=== PATIENT | male | born 1970 | race Caucasian/White ===

== ENCOUNTER 2018-04-20 20:19 | Observation (INO) ==
[2018-04-20 20:56] LABS: Basophils % 0.5 %; Eosinophils # 0.2 K/mcL (0.0-0.6); Eosinophils % 3.2 %; Hematocrit 45.8 % (37.5-50.1); Hemoglobin 15.4 g/dL (12.9-16.9); Immature Granulocytes % 0.3 % (0-4); Lymphocytes # 1.9 K/mcL (0.6-4.6); Mean Corpuscular HGB Conc 33.6 g/dL (31.6-35.5); Mean Corpuscular Hemoglobin 30.5 pg (28.0-33.3); Mean Corpuscular Volume 90.7 fL (83.0-100.0); Mean Platelet Volume 10.3 fL (9.4-12.4); Monocytes # 0.7 K/mcL (0.0-1.3); Monocytes % 11.4 %; Neutrophils # 3.1 K/mcL (1.6-8.9); Platelet Count 146 K/mcL (140-400); Red Blood Count 5.05 M/mcL (4.19-5.50); Red Cell Distribution Width 13.8 % (11.5-14.5); Segmented Neutrophils % 52.6 %
[2018-04-20 21:06] LABS: Prothrombin Time 11.3 Seconds (9.4-12.1)
[2018-04-20 21:08] LABS: Activated Partial Thrombo Time 32.4 Seconds (26.0-36.0)
[2018-04-20 21:17] LABS: BUN/Creatinine Ratio 13 (6-26); Blood Urea Nitrogen 13 mg/dL (6-20); Calcium 8.9 mg/dL (8.6-10.3); Carbon Dioxide 24 mEq/L (23-29); Chloride 106 mEq/L (98-107); Glucose 110 mg/dL (70-105); Osmolality,Calculated 285 (280-300); Potassium 4.1 mEq/L (3.5-5.1); Sodium 137 mEq/L (136-145); eGFR For Non-African Americans > 60 (> 60)
[2018-04-20 21:18] LABS: Troponin I < 0.03 ng/mL (< 0.04)
--- NOTE | 2018-04-20 22:20 | Emergency Department Note ---
Disposition Clinical Impression: Chest pain Qualifiers: Chest pain type: unspecified Qualified Code(s): R07.9 - Chest pain, unspecified Disposition: Admitted As Inpatient Condition: Good Referrals: NONE,PCP [Primary Care Provider] - Forms: ED Satisfaction Letter Time of Disposition: 22:30 General Adult HPI - General Chief complaint: ED Chest Pain Stated complaint: cp Time Seen by Provider: 04/20/18 20:26 Source: patient Mode of arrival: ambulatory Limitations: no limitations Nursing Notes Reviewed: Yes Vital Signs Reviewed: Yes - History of Present Illness HPI Narrative: 48-year-old male with significant past medical history of hypertension presenting to the emergency Department chief complaint of chest pain. Patient was recently admitted for chest pain previously. He states he had a stress test but no further intervention. Patient states when he was discharge she was still having minimal chest pain rated as a 1-2 out of 10. Patient states today his chest pain started to become worse. It was substernal and radiated down his left arm. He denies diaphoresis or nausea. Patient did not try anything at home for this. Pain Scale: 0 - Related Data Home Medications Medication Instructions Recorded Confirmed HYDROcodone/Acet 10/325 mg [[place] 1 tab PO Q6HR PRN 04/20/18 04/20/18 10-325 mg] Allergies Allergy/AdvReac Type Severity Reaction Status Date / Time prednisone AdvReac Hives Verified 04/20/18 20:23 All systems ED: reviewed and negative except as stated. Constitutional: Denies: fever, chills Eyes: Reports: as per HPI ENT ED: Reports: as per HPI Cardiovascular: Reports: chest pain. Denies: palpitations, dyspnea on exertion Respiratory: Denies: cough, dyspnea, wheezes Gastrointestinal: Denies: abdominal pain, nausea, vomiting Genitourinary: Reports: as per HPI Musculoskeletal: Reports: as per HPI Integumentary: Reports: as per HPI Neurological: Denies: numbness, paresthesias Psychiatric: Reports: as per HPI Endocrine: Reports: as per HPI Hematological/Lymphatic: Reports: as per HPI Allergic/Immunologic: Reports: as per HPI Past Medical History - Past Medical History Attestation: Yes The following information was validated with the patient. Medical history: Reports: no medical history, other Surgical history: Reports: orthopedic, other (L-spine fusion, 2 rods placed) Psychiatric history: Reports: no psych history - Social History Smoking Status: Current every day smoker Alcohol use: Reports: none Drug use: Reports: none Physical Exam - General Limitations: no limitations General appearance: alert, in no apparent distress - Head Head exam: atraumatic, normocephalic, normal inspection - Eye Eye exam: Present: normal appearance. Absent: scleral icterus, conjunctival injection - ENT ENT exam: normal exam, mucous membranes moist - Neck Neck exam: Present: normal inspection, full ROM. Absent: tenderness, meningismus - Chest Chest inspection: Present: normal inspection, symmetric chest wall rise. Absent : tenderness, rash - Respiratory Respiratory exam: Present: normal lung sounds bilaterally. Absent: respiratory distress, wheezes - Cardiovascular Cardiovascular exam: Present: regular rate, normal rhythm, normal heart sounds - Abdominal Exam Abdominal exam: Present: soft, Non-Tender. Absent: distention, guarding, rebound - Extremities Exam Extremities exam: Present: normal inspection, full ROM - Neurological Exam Neurological exam: Present: alert, oriented X3 - Psychiatric Psychiatric exam: Present: normal affect, normal mood - Skin Skin exam: Present: warm, intact Course Course Narrative: 40-year-old male presenting for chest pain. Patient recently had a stress test but no catheterization. Patient states chest pain never fully went away after discharge. We will perform basic chest pain workup including troponin, EKG and chest x-ray. With the patient's symptoms most likely disposition will be admission but pending results. Patient is alert and oriented times in the room stable vital signs. He agrees with this plan. - Reevaluation(s) Reevaluation #1: Patient's laboratory analysis unchanged from previous. Chest x-ray shows possible retrocardiac pneumonia but patient has no white blood cell count and no fever. No concern for pneumonia at this time. We will plan to admit the patient for further chest pain evaluation. I spoke with the hospitalist on- call Dr. Art who agrees to accept the patient at this time. Patient is alert and oriented 3 and room stable vital signs. He agrees with this plan. Vital Signs Temperature 97.9 F 04/20/18 20:20 Pulse Rate 80 04/20/18 20:20 Respiratory Rate 16 04/20/18 20:20 Blood Pressure 156/98 04/20/18 20:20 O2 Sat by Pulse Oximetry 97 04/20/18 20:20 Temperature 97.9 F 04/20/18 20:20 Pulse Rate 56 04/20/18 22:13 Respiratory Rate 16 04/20/18 22:13 Blood Pressure 144/101 04/20/18 22:13 O2 Sat by Pulse Oximetry 96 04/20/18 22:13 Oxygen Delivery Oxygen Delivery Room Air Medical Decision Making - Lab Data Result diagrams: 04/20/18 20:35 04/20/18 20:35 Lab Results 04/20/18 04/20/18 04/20/18 Range/Units 20:35 20:35 20:35 WBC 5.9 (4.3-11.1) K/mcL RBC 5.05 (4.19-5.50) M/mcL Hgb 15.4 (12.9-16.9) g/dL Hct 45.8 (37.5-50.1) % MCV 90.7 (83.0-100.0) fL MCH 30.5 (28.0-33.3) pg MCHC 33.6 (31.6-35.5) g/dL RDW 13.8 (11.5-14.5) % Plt Count 146 (140-400) K/mcL MPV 10.3 (9.4-12.4) fL Immature Gran % 0.3 (0-4) % Seg Neutrophils % 52.6 % Lymphocytes % 32.0 % Monocytes % 11.4 % Eosinophils % 3.2 % Basophils % 0.5 % Neutrophils # 3.1 (1.6-8.9) K/mcL Lymphocytes # 1.9 (0.6-4.6) K/mcL Monocytes # 0.7 (0.0-1.3) K/mcL Eosinophils # 0.2 (0.0-0.6) K/mcL Basophils # 0.0 (0.0-0.2) K/mcL PT 11.3 (9.4-12.1) Seconds INR 1.0 APTT 32.4 (26.0-36.0) Seconds Sodium (136-145) mEq/L Potassium (3.5-5.1) mEq/L Chloride (98-107) mEq/L Carbon Dioxide (23-29) mEq/L BUN (6-20) mg/dL Creatinine (0.70-1.30) mg/dL Est GFR ( Amer) (> 60) Est GFR (Non-Af Amer) (> 60) BUN/Creatinine Ratio (6-26) Glucose (70-105) mg/dL Calculated Osmolality (280-300) Calcium (8.6-10.3) mg/dL Troponin I (< 0.04) ng/mL B-Natriuretic Peptide 11 (Less than 100) pg/mL 04/20/18 Range/Units 20:35 WBC (4.3-11.1) K/mcL RBC (4.19-5.50) M/mcL Hgb (12.9-16.9) g/dL Hct (37.5-50.1) % MCV (83.0-100.0) fL MCH (28.0-33.3) pg MCHC (31.6-35.5) g/dL RDW (11.5-14.5) % Plt Count (140-400) K/mcL MPV (9.4-12.4) fL Immature Gran % (0-4) % Seg Neutrophils % % Lymphocytes % % Monocytes % % Eosinophils % % Basophils % % Neutrophils # (1.6-8.9) K/mcL Lymphocytes # (0.6-4.6) K/mcL Monocytes # (0.0-1.3) K/mcL Eosinophils # (0.0-0.6) K/mcL Basophils # (0.0-0.2) K/mcL PT (9.4-12.1) Seconds INR APTT (26.0-36.0) Seconds Sodium 137 (136-145) mEq/L Potassium 4.1 (3.5-5.1) mEq/L Chloride 106 (98-107) mEq/L Carbon Dioxide 24 (23-29) mEq/L BUN 13 (6-20) mg/dL Creatinine 1.04 (0.70-1.30) mg/dL Est GFR ( Amer) > 60 (> 60) Est GFR (Non-Af Amer) > 60 (> 60) BUN/Creatinine Ratio 13 (6-26) Glucose 110 H (70-105) mg/dL Calculated Osmolality 285 (280-300) Calcium 8.9 (8.6-10.3) mg/dL Troponin I < 0.03 (< 0.04) ng/mL B-Natriuretic Peptide (Less than 100) pg/mL - EKG Data EKG #1 EKG attestation: Yes I reviewed and interpreted this EKG. EKG results narrative: Sinus rhythm. 67 beats for minute. MO interval 132, QRS 94, QTC 385. No signs of acute ST segment elevation or ischemia. Attestation Statement - Attestation Attestation: Dr Lake Note: Pt seen in conjunction w/ resident Dr Latonia Sawyer; please see her charting for complete documentation; I agree w/ pt's treatment and disposition and plan ; I spent face to face time w/ the pt and have reviewed the blood work and x ray results; no cough/fever or shortness of breath; not clinically pneumonia; pt has been having left parasternal chest pain which @ times radiates to L shoulder w/o clear exacerbating/alleviating factors; pain is NOT exertional; no fever or n/v/d; no pain at the time of my eval;
--- NOTE | 2018-04-20 23:25 | Internal Med History&Physical ---
<Cleve Castle - Last Filed: 04/21/18 00:33> Date of Encounter: 04/21/18 Time of Encounter: 23:23 Internal Medicine - H&P: HPI Chief complaint: Chest pain Admitted From: Emergency Dept Plans for Post Hospital Care: Home History of present illness: Mr. Lopez is a 48 year old male with past medical history of hypertension presents to emergency department with complaint of chest pain. He was notably discharged on 04/14 for the same complaint but states that his pain never resolved following this. He did undergo a stress test at that time which was equivocal as he was not able to obtain goal heart rate. Pharmacological stress test at the same time was negative for acute ischemia or infarct. Patient describes chest pain as left substernal region which is sharp and deep in nature without radiation. He does admit to occasional numbness and tingling of the left arm but states they are not always associated with the chest pain. He states his pain is nonexertional and occurs approximately once per day for the last 2 months. No exacerbating or relieving factors. Pain typically lasts for about 15 minutes before resolving on its own. Denies any social symptoms of fevers, chills, shortness of breath, nausea, vomiting. He does admit to a chronic cough which is at his baseline. In the emergency department, vital signs significant for a mildly elevated blood pressure 144/101, heart rate of 56. Laboratory results are unremarkable including a negative troponin or white count elevation. Chest x-ray did show a possible retrocardiac pneumonia. Past medical history includes hypertension however patient does admit that he does not follow with primary care physician regularly Past surgical history significant for lumbar surgeries Social history includes current every day smoker, 1 pack per day since age 16. Denies alcohol use. Admits to remote history of cocaine use briefly. Denies family history Past Med Surg Social Fam HX - Past Medical History Medical history: no medical history, other Psychiatric history: no psych history - Past Surgical History Surgical History: orthopedic, other (L-spine fusion, 2 rods placed) - Social History Smoking Status: Current every day smoker Alcohol use: none Drug use: none - Family History Mother Hx Family Cardiac Disorders: Yes (CHF) Father Hx Family Cardiac Disorders: Yes (CHF) Internal Medicine - H&P: Meds HYDROcodone/Acet 10/325 mg [[place] 10-325 mg] 1 tab PO Q6HR PRN 04/20/18 [History ] 3 Allergy/AdvReac Type Severity Reaction Status Date / Time prednisone AdvReac Hives Verified 04/20/18 20:23 All Systems PM: A 10-system review of systems was performed and is negative for pertinent findings except as documented above in the HPI. - Constitutional Constitutional: no anorexia, no chills, no fever(s) - Cardiovascular Cardiovascular ROS IM: chest pain, no diaphoresis, no dyspnea, no dyspnea on exertion, no edema, no lightheadedness, no orthopnea, no palpitations, no syncope - Respiratory Respiratory: cough, no dyspnea, no hemoptysis, no dyspnea on exertion, no wheezing, no pain with cough - Gastrointestinal Gastrointestinal: no abdominal pain, no nausea, no vomiting - Integumentary Integumentary IM: no rash - Constitutional Vitals: Temp Pulse Resp BP Pulse Ox 97.9 F 56 18 133/98 96 04/20/18 20:20 04/20/18 22:13 04/20/18 23:13 04/20/18 23:13 04/20/18 22:13 Exam: Gen.: Vitals noted. No acute distress. AAOx3. Resting comfortably in bed HEENT: PERRL/EOMI, oropharynx clear, Normocephalic, atraumatic, MMM Cardiac: RRR, no murmur, +S1/S2. Chest pain is somewhat reproducible on exam however patient states that it is usually worse Pulmonary: Crackles in bilateral lung bases, diffuse wheezing, equal chest expansion Abdomen: soft, mildly tender to palpation epigastric and left upper quadrant, BS noted, no guarding Extremities: no BLE edema, nontender calf, no cyanosis or clubbing Neuro: A&Ox3, moves all extremities, no focal deficits Psych: Appropriate mood and behavior Internal Med - H&P Results - Labs CBC & Chem 7: 04/20/18 20:35 04/20/18 20:35 - Assessment and plan (1) Chest pain Current Visit: Yes Status: Suspected Assessment and plan: - Atypical chest pain 2 months - Recent cardiac workup on including exercise stress test at which maximum heart rate was not able to be reached. Pharmacologic stress test at same time showed no evidence of ischemia or infarct - Cardiology was consult at that time and did not feel the need for left heart catheterization - No exertional components, mildly reproducible on exam - Troponin negative, no evidence of EKG changes - Chest x-ray shows possible retrocardiac consolidation suggestive of pneumonia Plan - Suspect component of costochondritis will give Toradol - Low suspicion for ACS at this time - We will continue to trend troponins x 3 - Treatment of possible underlying pneumonia as below - Will not consult cardiology at this time as there is lower suspicion for ACS. Consider consultation if symptoms persist versus follow-up as outpatient for possible left heart catheterization Qualifiers: Chest pain type: intercostal pain Qualified Code(s): R07.82 - Intercostal pain (2) Tobacco dependence Current Visit: Yes Status: Chronic Assessment and plan: Current everyday smoker, 1 pack per day - Patient was encouraged to quit and he states that he is not interested at this time (3) Essential hypertension Current Visit: Yes Status: Chronic Assessment and plan: - Mildly elevated at 139/87 - No reported home medications, possibly elevated in the setting of pain - We will monitor for now (4) DVT prophylaxis Current Visit: Yes Status: Acute Assessment and plan: - Heparin 5000 units every 12 hours (5) Pneumonia Current Visit: Yes Status: Acute Assessment and plan: - Possibly pneumonia as demonstrated on chest x-ray emergency department - Patient denies any symptoms of fevers, change in cough - Lower suspicion however this may be contributing to patient's left substernal atypical chest pain - Cough present at baseline - WBC of 5.9, afebrile - Recent hospital admission 2 weeks ago Plan - Will start on levaquin daily and continue to monitor - lower suspicion for hospital acquired pathogens, will not add MRSA or double pseudomonal coverage at this time. Consider if no improvement/ worsening. Qualifiers: Pneumonia type: due to unspecified organism Laterality: left Lung location: lower lobe of lung Qualified Code(s): J18.1 - Lobar pneumonia, unspecified organism - Time Spent With Patient Total time spent is greater than 50% in coordination of care (as documented) at patient's floor/unit and/or counseling patient: <Santana Hinojosa - Last Filed: 04/21/18 05:57> Date of Encounter: 04/20/18 Internal Medicine - H&P: HPI History of present illness: Mr. Lopez is a 48 year old male All Systems PM: A 10-system review of systems was performed and is negative for pertinent findings except as documented above in the HPI. - Constitutional Vitals: Temp Pulse Resp BP Pulse Ox 98.3 F 56 16 115/74 95 04/21/18 03:28 04/21/18 03:28 04/21/18 03:28 04/21/18 03:28 04/21/18 03:28 Internal Med - H&P Results - Labs CBC & Chem 7: 04/21/18 01:42 04/21/18 01:42 Labs: Short CBC 04/21/18 Range/Units 01:42 WBC 4.9 (4.3-11.1) K/mcL Hgb 14.1 (12.9-16.9) g/dL Hct 43.0 (37.5-50.1) % Plt Count 138 L (140-400) K/mcL Neutrophils # 2.6 (1.6-8.9) K/mcL BMP 04/21/18 01:42 Sodium 137 Potassium 4.6 Chloride 105 Carbon Dioxide 27 BUN 11 Creatinine 1.05 Glucose 113 H Calcium 9.0 Cardiac Enzymes 04/21/18 Range/Units 01:42 Troponin I < 0.03 (< 0.04) ng/mL - Attending Attestation I have seen the patient and performed my own history and physical examination. I have discussed the case with the admitting resident physician, and I agree with his assessment and plan as documented in his H&P. Briefly, patient admitted for atypical chest pain. Initial cardiac enzymes WNL and EKG unchanged from previous without signs of ischemia. CXR with possible pneumonia. Will admit for observation with telemetry. Trend troponin x 3. Start levaquin for possible pneumonia. Treat possible costochondritis with NSAID. Obtain ECHO in AM. Consider cardiology consult if symptoms persist or cardiac enzymes trend up. Repeat labwork in AM. - Assessment and plan (1) Chest pain Current Visit: Yes Status: Suspected Qualifiers: Chest pain type: intercostal pain Qualified Code(s): R07.82 - Intercostal pain (2) Tobacco dependence Current Visit: Yes Status: Chronic (3) DVT prophylaxis Current Visit: Yes Status: Acute (4) Essential hypertension Current Visit: Yes Status: Chronic (5) Pneumonia Current Visit: Yes Status: Acute Qualifiers: Pneumonia type: due to unspecified organism Laterality: left Lung location: lower lobe of lung Qualified Code(s): J18.1 - Lobar pneumonia, unspecified organism - Time Spent With Patient Total time spent is greater than 50% in coordination of care (as documented) at patient's floor/unit and/or counseling patient:
[2018-04-21] MEDS ORDERED: *HR* OxyCODONE Immed Rel 5 MG TABLET PO PRN (00:41)
[2018-04-21] MEDS ORDERED: Acetaminophen 325 MG TABLET PO PRN (00:41)
[2018-04-21] MEDS ORDERED: Naloxone 0.4 MG/ML INJ IVP PRN (00:41)
[2018-04-21] MEDS ORDERED: *HR* HYDROcodone/Acet 5/325 mg TABLET PO PRN (00:41)
[2018-04-21 01:54] LABS: Basophils % 0.6 %; Eosinophils # 0.1 K/mcL (0.0-0.6); Eosinophils % 2.8 %; Hemoglobin 14.1 g/dL (12.9-16.9); Immature Granulocytes % 0.2 % (0-4); Lymphocytes # 1.7 K/mcL (0.6-4.6); Lymphocytes % 33.7 %; Mean Corpuscular HGB Conc 32.8 g/dL (31.6-35.5); Mean Corpuscular Hemoglobin 29.6 pg (28.0-33.3); Mean Corpuscular Volume 90.1 fL (83.0-100.0); Mean Platelet Volume 9.7 fL (9.4-12.4); Monocytes # 0.5 K/mcL (0.0-1.3); Neutrophils # 2.6 K/mcL (1.6-8.9); Platelet Count 138 K/mcL (140-400); Red Blood Count 4.77 M/mcL (4.19-5.50); Red Cell Distribution Width 13.9 % (11.5-14.5); Segmented Neutrophils % 51.7 %
[2018-04-21 02:14] LABS: BUN/Creatinine Ratio 10 (6-26); Blood Urea Nitrogen 11 mg/dL (6-20); Carbon Dioxide 27 mEq/L (23-29); Chloride 105 mEq/L (98-107); Glucose 113 mg/dL (70-105); Osmolality,Calculated 284 (280-300); Potassium 4.6 mEq/L (3.5-5.1); Sodium 137 mEq/L (136-145); eGFR For Non-African Americans > 60 (> 60)
[2018-04-21] MEDS ORDERED: *HR* Heparin 5,000 UNIT/ML VIAL SQ SCH (06:00)
[2018-04-21] MEDS ORDERED: levoFLOXacin 750 MG TABLET PO SCH (09:00)
[2018-04-21 11:04] VITALS: BP 124/84
--- NOTE | 2018-04-21 12:22 | Discharge Summary ---
- NOTES TO OUTPATIENT PROVIDER Notes to Outpatient Provider: Follow-up with primary care physician. Patient hadleft pneumonia, discharged home with home with 4 days of Levaquin by mouth. Patient is not hypoxic. Date of Encounter: 04/21/18 Time of Encounter: 12:21 - Discharge Diagnosis (1) Chest pain Priority: Primary Status: Resolved Qualifiers: Chest pain type: chest pain on breathing Qualified Code(s): R07.1 - Chest pain on breathing; R07.81 - Pleurodynia (2) Tobacco dependence Priority: Secondary Status: Chronic (3) DVT prophylaxis Priority: Primary Status: Acute (4) Essential hypertension Priority: Secondary Status: Chronic (5) Pneumonia Priority: Primary Status: Acute Qualifiers: Pneumonia type: due to unspecified organism Laterality: left Lung location: lower lobe of lung Qualified Code(s): J18.1 - Lobar pneumonia, unspecified organism Hospital course: Mr. Lopez is a 48 year old male with medical history of hypertension not on any home medications who presented with pleuritic chest pain. The patient had been discharged 04/14 for chest pain during which a stress test was said to be negative for acute ischemia or infarct. This time, chest pain said to be substernal and worse with breathing. In the emergency department, vital signs significant for a mildly elevated blood pressure 144/101, heart rate of 56. Laboratory results are unremarkable including a negative troponin or white count elevation. Chest x-ray did show a possible retrocardiac pneumonia. Patient continues to smoke and has a remote history of cocaine use. Denies any current use. Patient was placed on observation to cycle his troponins. 3 sets of troponin negative. Other cardic work up not repeated He was given intravenous Levaquin in the hospital. Discharged on by mouth Levaquin. Patient's blood pressure although elevated on arrival resolved without medications. Recommend follow-up with primary care physician. 3 minutes spent on tobacco cessation counseling. Discharge discussed with: patient, nurse Time spent discussing smoking cessation with patient: 3 to 10 minutes - Time Spent with Patient Total time spent providing and/or coordinating discharge services: Less than 30 minutes - Discharge Medications Prescriptions: Levofloxacin [Levaquin] 750 mg PO DAILY #4 tablet Home Medications: HYDROcodone/Acet 10/325 mg [[place] 10-325 mg] 1 tab PO Q6HR PRN 04/20/18 [History ] Levofloxacin [Levaquin] 750 mg PO DAILY #4 tablet 04/21/18 [Rx] Allergies/Adverse Reactions: 3 Allergy/AdvReac Type Severity Reaction Status Date / Time prednisone AdvReac Hives Verified 04/20/18 20:23 Date of admission: 04/20/18 22:58 Primary care physician: PCP NONE Discharging clinician: Pito Beckett Anticipated date of discharge: 04/21/18 - Constitutional Vitals: Temp Pulse Resp BP Pulse Ox 97.4 F L 56 18 124/84 96 04/21/18 11:00 04/21/18 11:00 04/21/18 11:00 04/21/18 11:00 04/21/18 11:00 General appearance: Present: A&O X 3, pleasant, no acute distress - Head Head exam: Present: atraumatic, normocephalic - Eye Eye exam: Present: PERRL, conjuntiva pink, sclera anicteric Pupils: Present: PERRL - Neck Neck exam general surgery: Present: supple, trachea midline. Absent: lymphadenopathy - Respiratory Respiratory exam: Present: CTAB. Absent: accessory muscle use, rales, rhonchi, wheezes - Cardiovascular Cardiovascular exam: Present: RRR, +S1, +S2. Absent: diastolic murmur, gallop, rubs, systolic murmur - GI/Abdominal GI/Abdominal exam: Present: normal bowel sounds, soft, no peritoneal signs. Absent: distended, tenderness - Extremities Exam Extremities exam: Present: warm, radial pulses palpable and symmetrical. Absent : calf tenderness, cyanotic, pedal edema - Neurological Exam Neurological exam: Present: CN II-XII intact, oriented X3, no focal deficits. Absent: pronater drift, facial droop, speech deficit - Skin Skin exam: Present: dry, intact - Patient Status Disposition: Home, Self-Care Condition: Good Functional capacity at discharge: independent ambulation Overall status at discharge: patient is back to baseline - Discharge Instructions Instructions: Chest Pain (DC), Pneumonia (DC) Follow Up With: Maura Low CNP [Partnered Physician] - 04/27/18 1:00 pm (Please follow up as schedule...) NONE,PCP [Primary Care Provider] - Forms: Inpatient Work/School Release - Diet and Activity Activity: resume usual activities as tolerated Diet: regular diet
--- NOTE | 2018-04-21 16:56 | Electrocardiograph Report ---
[address] [address] Test Date: 2018-04-20 Pat Name: Renzo Lopez Department: 103 Room: 2A33 Gender: M [employer]: SANDRA : 1970 Requested By: Devonte Lake Order Number: [id number] Reading MD: Loretta Negrete Measurements Intervals [place] Rate: 67 P: 71 HI: 132 QRS: 56 QRSD: 94 T: 40 QT: 369 QTc: 385 Interpretive Statements SINUS RHYTHM POSSIBLE RIGHT VENTRICULAR CONDUCTION DELAY [RSR (QR) IN V1/V2] Electronically Signed On 04-21-2018 16:54:42 EDT by Loretta Negrete
== END 2018-04-21 13:10 | disposition home or self-care (01) ==
LOC: 2ANU 20:19 → EMEROO 20:19 → SUATTDRO 22:58 → 2ANU 23:37
PROVIDERS: ADMIT Family Medicine; ATTEND Internal Medicine

== ENCOUNTER 2019-07-02 23:00 | Observation (INO) ==
[2019-07-03] MEDS ORDERED: Nitroglycerin 0.4 MG TAB.SUBL SL PRN (04:35)
[2019-07-03] MEDS ORDERED: *HR* HYDROcodone/Acet 10/325 mg TABLET PO PRN (04:35)
[2019-07-03] MEDS ORDERED: Naloxone 0.4 MG/ML INJ IVP PRN (05:05)
[2019-07-03] MEDS ORDERED: Acetaminophen 325 MG TABLET PO PRN (05:05)
[2019-07-03] MEDS ORDERED: *HR* Promethazine 25 MG/ML VIAL IVP PRN (05:05)
[2019-07-03 05:43] LABS: Hematocrit 42.9 % (37.5-50.1); Mean Corpuscular HGB Conc 32.6 g/dL (31.6-35.5); Mean Corpuscular Hemoglobin 30.2 pg (28.0-33.3); Mean Corpuscular Volume 92.7 fL (83.0-100.0); Mean Platelet Volume 9.9 fL (9.4-12.4); Platelet Count 170 K/mcL (140-400); Red Blood Count 4.63 M/mcL (4.19-5.50); White Blood Count 7.7 K/mcL (4.3-11.1)
[2019-07-03 06:02] LABS: Chol/HDL Ratio 3.3 (0-4.9)
[2019-07-03 06:04] LABS: Alanine Aminotransferase 15 Units/L (7-52); Albumin/Globulin Ratio 1.5 (1.1-2.2); Alkaline Phosphatase 45 Units/L (34-104); Aspartate Amino Transferase 15 Units/L (13-39); BUN/Creatinine Ratio 16 (6-26); Bilirubin,Direct 0.1 mg/dL (0.0-0.2); Bilirubin,Indirect 0.5 mg/dL (0.0-1.2); Bilirubin,Total 0.6 mg/dL (0.3-1.0); Blood Urea Nitrogen 17 mg/dL (6-20); Calcium 8.8 mg/dL (8.6-10.3); Carbon Dioxide 25 mEq/L (23-29); Chloride 107 mEq/L (98-107); Globulin 2.6 g/dL (2.4-3.5); Glucose 108 mg/dL (70-105); Osmolality,Calculated 292 (280-300); Potassium 4.1 mEq/L (3.5-5.1); Sodium 140 mEq/L (136-145); Total Protein 6.6 g/dL (6.4-8.9); eGFR For African Americans > 60 (> 60); eGFR For Non-African Americans > 60 (> 60)
[2019-07-03 06:05] LABS: Troponin I < 0.03 ng/mL (< 0.04)
[2019-07-03] MEDS: Aspirin Enteric Coated 81 MG Tablet PO SCH (08:36)
[2019-07-03 11:24] LABS: Amphetamine Screen,Urine Negative ng/mL (Cutoff=1000); Barbiturate Screen,Urine Negative ng/mL (Cutoff=200); Benzodiazepines Screen,Urine Negative ng/mL (Cutoff=200); Cannabinoid Screen,Urine Negative ng/mL (Cutoff = 50); Cocaine Screen,Urine Negative ng/mL (Cutoff= 300); Opiate Screen,Urine Negative ng/mL (Cutoff=300); Phencyclidine Screen,Urine Negative ng/mL (Cutoff=25)
[2019-07-03] MEDS: *HR* Heparin 5,000 UNIT/ML VIAL SQ SCH ×2 (14:00→22:08)
[2019-07-04 03:26] LABS: Hemoglobin 13.9 g/dL (12.9-16.9); Mean Corpuscular HGB Conc 32.3 g/dL (31.6-35.5); Mean Corpuscular Hemoglobin 30.2 pg (28.0-33.3); Mean Corpuscular Volume 93.5 fL (83.0-100.0); Mean Platelet Volume 10.2 fL (9.4-12.4); Platelet Count 172 K/mcL (140-400); Red Cell Distribution Width 13.7 % (11.5-14.5)
[2019-07-04 03:46] LABS: BUN/Creatinine Ratio 19 (6-26); Blood Urea Nitrogen 21 mg/dL (6-20); Calcium 8.8 mg/dL (8.6-10.3); Carbon Dioxide 24 mEq/L (23-29); Chloride 106 mEq/L (98-107); Glucose 105 mg/dL (70-105); Osmolality,Calculated 285 (280-300); Potassium 4.2 mEq/L (3.5-5.1); Sodium 136 mEq/L (136-145); eGFR For African Americans > 60 (> 60); eGFR For Non-African Americans > 60 (> 60)
[2019-07-04] MEDS: *HR* Heparin 5,000 UNIT/ML VIAL SQ SCH (05:49)
[2019-07-04 07:44] VITALS: BP 137/78
[2019-07-04] MEDS ORDERED: Isosorbide MONOnitrate (24 HR) 30 MG TAB.ER.24H PO SCH (10:21)
[2019-07-04] MEDS: Aspirin Enteric Coated 81 MG Tablet PO SCH (10:34)
== END 2019-07-04 11:28 | disposition home or self-care (01) ==
LOC: 3BNU → SUATTDRO 07-03 01:35
PROVIDERS: ADMIT Internal Medicine; ATTEND Student in an Organized Health Care Education/Training Program

== ENCOUNTER 2020-11-27 13:32 | Observation (INO) ==
[2020-11-27] MEDS ORDERED: Aspirin 81 MG TAB.CHEW PO ONE (13:39)
[2020-11-27] MEDS: Nitroglycerin 0.4 MG TAB.SUBL SL SCH ×3 (14:04→14:24)
[2020-11-27 14:56] LABS: BUN/Creatinine Ratio 9 (6-26); Blood Urea Nitrogen 9 mg/dL (6-20); Carbon Dioxide 22 mEq/L (23-29); Chloride 106 mEq/L (98-107); Glucose 94 mg/dL (70-105); Osmolality,Calculated 282 (280-300); Potassium 4.2 mEq/L (3.5-5.1); Sodium 137 mEq/L (136-145); Troponin I < 0.03 ng/mL (< 0.04); eGFR For African Americans > 60 (> 60); eGFR For Non-African Americans > 60 (> 60)
[2020-11-27 15:06] LABS: Basophils % 0.4 %; Eosinophils # 0.2 K/mcL (0.0-0.6); Eosinophils % 2.4 %; Hematocrit 45.8 % (37.5-50.1); Hemoglobin 15.1 g/dL (12.9-16.9); Immature Granulocytes % 0.1 % (0-4); Lymphocytes # 2.3 K/mcL (0.6-4.6); Lymphocytes % 34.8 %; Mean Corpuscular Hemoglobin 30.5 pg (28.0-33.3); Mean Corpuscular Volume 92.5 fL (83.0-100.0); Mean Platelet Volume 10.2 fL (9.4-12.4); Monocytes # 0.5 K/mcL (0.0-1.3); Monocytes % 6.7 %; Neutrophils # 3.7 K/mcL (1.6-8.9); Platelet Count 178 K/mcL (140-400); Red Blood Count 4.95 M/mcL (4.19-5.50); Red Cell Distribution Width 13.6 % (11.5-14.5); Segmented Neutrophils % 55.6 %; White Blood Count 6.7 K/mcL (4.3-11.1)
[2020-11-27] MEDS ORDERED: Mag Hydrox/Al Hydrox/Simeth 30 ML UDC PO PRN (17:12)
[2020-11-27] MEDS ORDERED: Naloxone 0.4 MG/ML INJ IVP PRN (17:12)
[2020-11-27] MEDS ORDERED: Ondansetron ODT 4 MG TAB.RAPDIS SL PRN (17:12)
[2020-11-27] MEDS ORDERED: MOM Conc 10 ML UD.LIQ PO PRN (17:12)
[2020-11-27] MEDS ORDERED: Melatonin 3 MG TABLET PO PRN (17:12)
[2020-11-27] MEDS ORDERED: Perflutren Lipid Microsphere 1.3 ML in 0.9 % Sodium Chloride 8.7 ML IVP PRN (17:16)
[2020-11-27] MEDS ORDERED: *HR* HYDROcodone/Acet 10/325 mg TABLET PO PRN (17:40)
[2020-11-27] MEDS ORDERED: Nitroglycerin 0.4 MG TAB.SUBL SL PRN (17:40)
[2020-11-28 00:43] LABS: Hematocrit 44.6 % (37.5-50.1); Hemoglobin 14.4 g/dL (12.9-16.9); Mean Corpuscular HGB Conc 32.3 g/dL (31.6-35.5); Mean Corpuscular Hemoglobin 29.7 pg (28.0-33.3); Platelet Count 189 K/mcL (140-400); Red Blood Count 4.85 M/mcL (4.19-5.50); Red Cell Distribution Width 13.6 % (11.5-14.5); White Blood Count 7.5 K/mcL (4.3-11.1)
[2020-11-28 00:56] LABS: Alanine Aminotransferase 11 Units/L (7-52); Albumin 3.9 g/dL (3.5-5.7); Albumin/Globulin Ratio 1.6 (1.1-2.2); Alkaline Phosphatase 50 Units/L (34-104); Aspartate Amino Transferase 13 Units/L (13-39); BUN/Creatinine Ratio 15 (6-26); Bilirubin,Total 0.4 mg/dL (0.3-1.0); Blood Urea Nitrogen 20 mg/dL (6-20); Calcium 8.7 mg/dL (8.6-10.3); Carbon Dioxide 25 mEq/L (23-29); Chloride 105 mEq/L (98-107); Cholesterol 154 mg/dL (< 200); Globulin 2.5 g/dL (2.4-3.5); Glucose 141 mg/dL (70-105); HDL Cholesterol 31 mg/dL (40-59); LDL Cholesterol,Calculated 96 mg/dL (< 100); Osmolality,Calculated 293 (280-300); Potassium 3.9 mEq/L (3.5-5.1); Sodium 139 mEq/L (136-145); Total Protein 6.4 g/dL (6.4-8.9); Triglycerides 133 mg/dL (< 150); eGFR For African Americans > 60 (> 60); eGFR For Non-African Americans 58 (> 60)
[2020-11-28] MEDS ORDERED: *HR* Enoxaparin 40 MG/0.4 ML SYRINGE SQ SCH (06:00)
[2020-11-28] MEDS ORDERED: 0.9 % Sodium Chloride 1,000 ML IVC SCH (07:45)
[2020-11-28] MEDS ORDERED: Regadenoson 0.4 MG/5 ML SYRINGE IVP ONE (08:40)
[2020-11-28] MEDS ORDERED: Aspirin 81 MG TAB.CHEW PO SCH (09:00)
[2020-11-28 15:41] VITALS: BP 132/80
[2020-11-28 15:55] LABS: Blood Urea Nitrogen 18 mg/dL (6-20); Carbon Dioxide 28 mEq/L (23-29); Chloride 105 mEq/L (98-107); Potassium 4.7 mEq/L (3.5-5.1); Sodium 139 mEq/L (136-145)
[2020-11-28 15:56] LABS: Calcium 8.9 mg/dL (8.6-10.3); Glucose 89 mg/dL (70-105); Osmolality,Calculated 289 (280-300)
[2020-11-28 16:24] LABS: BUN/Creatinine Ratio 17 (6-26); eGFR For African Americans > 60 (> 60); eGFR For Non-African Americans > 60 (> 60)
== END 2020-11-28 17:15 | disposition home or self-care (01) ==
LOC: 3BNU 13:32 → EMEROOARM 13:32 → SUATTDRO 16:21 → 3BNU 17:44
PROVIDERS: ADMIT Internal Medicine; ATTEND Registered Nurse

== ENCOUNTER 2021-12-26 19:03 | Observation (INO) ==
[2021-12-26] MEDS ORDERED: Aspirin 81 MG TAB.CHEW PO ONE (20:20)
[2021-12-26 20:22] LABS: Basophils % 0.5 %; Eosinophils # 0.3 K/mcL (0.0-0.6); Eosinophils % 3.1 %; Hematocrit 44.2 % (37.5-50.1); Hemoglobin 14.8 g/dL (12.9-16.9); Immature Granulocytes % 0.3 % (0-4); Lymphocytes # 2.8 K/mcL (0.6-4.6); Lymphocytes % 32.4 %; Mean Corpuscular HGB Conc 33.5 g/dL (31.6-35.5); Mean Corpuscular Hemoglobin 30.8 pg (28.0-33.3); Mean Corpuscular Volume 91.9 fL (83.0-100.0); Mean Platelet Volume 10.3 fL (9.4-12.4); Monocytes # 0.7 K/mcL (0.0-1.3); Monocytes % 7.8 %; Neutrophils # 4.8 K/mcL (1.6-8.9); Platelet Count 199 K/mcL (140-400); Red Blood Count 4.81 M/mcL (4.19-5.50); Red Cell Distribution Width 13.8 % (11.5-14.5); Segmented Neutrophils % 55.9 %; White Blood Count 8.6 K/mcL (4.3-11.1)
[2021-12-26 20:25] LABS: BUN/Creatinine Ratio 16 (6-26); Blood Urea Nitrogen 17 mg/dL (6-20); Calcium 9.2 mg/dL (8.6-10.3); Carbon Dioxide 24 mEq/L (23-29); Chloride 104 mEq/L (98-107); Glucose 103 mg/dL (70-105); Osmolality,Calculated 286 (280-300); Potassium 4.3 mEq/L (3.5-5.1); Sodium 137 mEq/L (136-145); eGFR For African Americans > 60 (> 60); eGFR For Non-African Americans > 60 (> 60)
[2021-12-26 20:26] LABS: Troponin I < 0.03 ng/mL (< 0.04)
[2021-12-26] MEDS ORDERED: Naloxone 0.4 MG/ML INJ IVP PRN (22:44)
[2021-12-26] MEDS ORDERED: Acetaminophen 325 MG TABLET PO PRN (22:44)
[2021-12-26] MEDS ORDERED: Ondansetron ODT 4 MG TAB.RAPDIS SL PRN (22:44)
[2021-12-26] MEDS ORDERED: Perflutren Lipid Microsphere 1.3 ML in 0.9 % Sodium Chloride 8.7 ML IVP PRN (22:46)
[2021-12-26 23:33] LABS: Bilirubin,Urine Negative (Negative); Blood,Urine Trace (Negative); Clarity,Urine Clear (Clear); Color,Urine Light-Yellow (Yellow); Glucose,Urine (UA) Normal (Normal); Ketones,Urine Negative (Negative); Leukocyte Esterase,Urine Trace (Negative); Mucus,Urine Few per lpf (None-Few); Nitrite,Urine Negative (Negative); Protein,Urine Negative (Neg-Trace); Specific Gravity,Urine 1.021 (1.010-1.025); Squamous Epithelial Cell,Urine Few per hpf (None-Few); Urobilinogen,Urine Normal (Normal)
[2021-12-27] MEDS ORDERED: Ipratropium/Albuterol Neb 3 ML IH PRN (01:02)
[2021-12-27] MEDS ORDERED: *HR* HYDROcodone/Acet 10/325 mg TABLET PO PRN (01:08)
[2021-12-27 03:05] LABS: Basophils % 0.6 %; Eosinophils # 0.2 K/mcL (0.0-0.6); Eosinophils % 3.5 %; Hematocrit 42.6 % (37.5-50.1); Hemoglobin 14.3 g/dL (12.9-16.9); Immature Granulocytes % 0.1 % (0-4); Lymphocytes # 3.1 K/mcL (0.6-4.6); Lymphocytes % 44.7 %; Mean Corpuscular HGB Conc 33.6 g/dL (31.6-35.5); Mean Corpuscular Hemoglobin 30.7 pg (28.0-33.3); Mean Corpuscular Volume 91.4 fL (83.0-100.0); Mean Platelet Volume 10.4 fL (9.4-12.4); Monocytes # 0.5 K/mcL (0.0-1.3); Monocytes % 7.5 %; Platelet Count 173 K/mcL (140-400); Red Blood Count 4.66 M/mcL (4.19-5.50); Red Cell Distribution Width 13.9 % (11.5-14.5); Segmented Neutrophils % 43.6 %; White Blood Count 6.9 K/mcL (4.3-11.1)
[2021-12-27 03:15] LABS: Prothrombin Time 10.9 Seconds (9.4-12.1)
[2021-12-27 03:37] LABS: Alanine Aminotransferase 16 Units/L (7-52); Albumin 3.8 g/dL (3.5-5.7); Albumin/Globulin Ratio 1.4 (1.1-2.2); Alkaline Phosphatase 49 Units/L (34-104); Aspartate Amino Transferase 18 Units/L (13-39); BUN/Creatinine Ratio 13 (6-26); Bilirubin,Indirect 0.4 mg/dL (0.0-1.0); Bilirubin,Total 0.4 mg/dL (0.3-1.0); Blood Urea Nitrogen 15 mg/dL (6-20); Carbon Dioxide 31 mEq/L (23-29); Chloride 104 mEq/L (98-107); Chol/HDL Ratio 3.2 (0-4.9); Cholesterol 141 mg/dL (< 200); Globulin 2.8 g/dL (2.4-3.5); Glucose 112 mg/dL (70-105); HDL Cholesterol 44 mg/dL (40-59); LDL Cholesterol,Calculated 88 mg/dL (< 100); Magnesium 2.2 mg/dL (1.6-2.6); Osmolality,Calculated 292 (280-300); Potassium 4.5 mEq/L (3.5-5.1); Sodium 140 mEq/L (136-145); Total Protein 6.6 g/dL (6.4-8.9); Triglycerides 46 mg/dL (< 150); eGFR For African Americans > 60 (> 60); eGFR For Non-African Americans > 60 (> 60)
[2021-12-27 03:40] LABS: Thyroid Stimulating Hormone 2.725 mcIU/mL (0.340-5.600)
[2021-12-27] MEDS ORDERED: Aspirin 81 MG TAB.CHEW PO SCH (09:00)
[2021-12-27] MEDS ORDERED: *HR* Enoxaparin 40 MG/0.4 ML SYRINGE SQ SCH (09:00)
[2021-12-27] MEDS ORDERED: cefTRIAXone 1,000 MG in 0.9 % Sodium Chloride 10 ML IVP SCH (09:00)
[2021-12-27] MEDS ORDERED: lisinopriL 5 MG TABLET PO SCH (09:00)
[2021-12-27] MEDS ORDERED: Regadenoson 0.4 MG/5 ML SYRINGE IVP ONE (11:50)
[2021-12-27] MEDS ORDERED: Nitroglycerin 0.4 MG TAB.SUBL SL PRN (13:38)
[2021-12-27 15:11] VITALS: BP 104/58; PULSE 75; TEMP 98.2; O2SAT 97
[2021-12-28] MEDS ORDERED: lisinopriL 10 MG TABLET PO SCH (09:00)
[2021-12-28] MEDS ORDERED: Isosorbide MONOnitrate (24 HR) 30 MG TAB.ER.24H PO SCH (09:00)
== END 2021-12-27 16:55 | disposition home or self-care (01) ==
LOC: 3BNU 19:03 → EMEROOARM 19:03 → SUATTDRO 22:04 → 3BNU 22:34
PROVIDERS: ADMIT Internal Medicine; ATTEND Family Medicine